=== PATIENT | male | born 1935 | race Caucasian/White ===

== ENCOUNTER → 2019-07-07 | Outpatient (CLI) | payer MEDICARE ==
[~2019-07-07] MED LIST: ALLO100T PO; AMLO10TA7 PO; ASPI-1181 PO; FURO40TA5 PO; GLUC480L2 PO; METO25TA6 PO; OMEG1CAP6 PO; RANI-379 PO; VIT D3 PO; [UNRECOGNIZED DRUG - CODE] PO
== END | disposition home or self-care (01) ==
LOC: RAH 12:46
PROVIDERS: ATTEND Internal Medicine Nephrology
DX: R60.9 Edema, unspecified (principal)
CPT/HCPCS: 93971